=== PATIENT | female | born 1960 | race Caucasian/White ===

== ENCOUNTER 2022-02-01 17:01 | Emergency (ER) | payer OTHER ==
[~2022-02-01] VITALS: Ht 165.1 cm; Wt 72.0 kg
[2022-02-01 17:57] VITALS: BP 167/93
[2022-02-01 18:00] VITALS: BP 149/97
[2022-02-01 18:30] VITALS: BP 153/97
[2022-02-01 19:00] VITALS: BP 143/91
[2022-02-01] MEDS ORDERED: NAPROXEN500 MG PO (19:25)
[2022-02-01 19:31] VITALS: BP 156/98
[2022-02-01 20:00] VITALS: BP 155/92
[2022-02-01] MEDS ORDERED: TYLENOL # 31 TA1 PO (20:09)
== END 2022-02-01 20:23 | disposition home or self-care (01) | DRG 566 ==
LOC: ED 17:01
DX: M25.462 Effusion, left knee (principal)